=== PATIENT | male | born 1995 | race Caucasian/White ===

== ENCOUNTER 2019-02-28 09:26 | Emergency (ER) | payer BC, SELFPAY ==
[2019-02-28 09:27] VITALS: BP 153/95; PULSE 126; RESP 20; TEMP 36.6; O2SAT 94; BMI 47.5
--- NOTE | 2019-02-28 09:47 | HMH.EDUTC ---
[facility] [place] Clinical Impression: Vomiting and diarrhea Disposition: Home, Self-Care Condition on Discharge: Good Instructions: Diarrhea (Alternative Therapy), Diarrhea (Alternative Therapy), Diarrhea, Nausea and Vomiting-Adult, Ondansetron Additional Instructions: ? Drink extra fluids with and between meals. If you have difficulty drinking, try very small amounts of water or suck on ice chips. ? Avoid fruit juices, as these do not replace minerals and can actually increase diarrhea. ? Children and adults can use sports drinks to replenish electrolytes. Younger children and infants should use products formulated for children, like oral rehydration solutions. ? Eat food in small amounts and let your stomach recover. ? Get lots of rest. You may feel tired or weak. ? No greasy or fried foods for the next 24-48 hours BRAT diet Bananas Rice Apples and [place] ? Make sure to drink plenty of liquids ? Return if needed ? Straight to ER if any life threatening symptoms ? Zofran as prescribed ? You was given an outpatient order for diarrhea panel, please collect specimen and bring back to outpatient lab then call back to the [facility] or follow up with family doctor for results ? Follow up with family doctor in the next 48-72 hours if no improvement or any worsening of symptoms Prescriptions: Ondansetron [Zofran 4mg ODT] 4 mg PO Q8HP PRN #20 tab.rapdis PRN Reason: Nausea Transmission Status: Received by [facility] Referrals: Pierre Christianson MD [Primary Care Provider] - As needed Forms: Work/School Release Time of Disposition: 10:23 Medical Decision Making - Mio Inquiry Pt receiving controlled substance: No Mio was queried for this patient: No Vital Signs: 02/28/19 09:27 Temperature 98 F Temperature Source Oral Pulse Rate [Right] 126 H Respiratory Rate 20 Blood Pressure [Right Arm] 153/95 H Blood Pressure Mean [Right Arm] 114 02 Sat by Pulse Oximetry 94 L - Lab Data Lab Results 02/28/19 09:54: Influenza Type A Ag Negative, Influenza Type B Ag Negative - Reevaluation(s) Time: 10:16 Reevaluation #1: Patient sitting on exam table drinking lion mist after medication if patient able to keep down patient will be dc'd home Time: 10:22 Reevaluation #3: Patient drink lion mist with no vomiting States that nausea is much better [facility] [place] - General Stated complaint: V/D Time Seen by Provider: 02/28/19 09:53 Mode of Arrival: Ambulatory Limitations: No Limitations Description of Symptoms (Recalled from Triage Doc. by RN): Pt states since 10pm last night he has had NVD, fever, body aches, and chills. HEENT Symptoms (Recalled from RN notes): No Resp Symptoms (Recalled from RN notes): No Skin Symptoms (Recalled from RN notes): No MS Symptoms (Recalled from RN notes): No Functional Status (Recalled from RN notes): na - History of Present Illness Provider Complaint: Patient states that he started having vomiting and diarrhea last night around 10pm and has been up and down all night with vomiting and diarrhea State that this morning diarrhea seems to be better but vomiting continued States that he last vomited about 1hr ago - Related Data Previous Rx's Medication Instructions Recorded Mupirocin [Bactroban 2% Ointment 1 applicatio TP BID #1 tube 06/27/17 22gm tube] cephALEXin [Keflex 500mg Cap] 500 mg PO QID #40 cap 06/27/17 Ondansetron [Zofran 4mg ODT] 4 mg PO Q8HP PRN #20 tab.rapdis 02/28/19 Allergies Allergy/AdvReac Type Severity Reaction Status Date / Time Penicillins Allergy Verified 06/27/17 13:38 - Worker's Comp Is this a Worker's Comp case?: No [facility] History - Hepatitis A Screen Drug use history?: No High risk sexual behaviors?: No History of sexually transmitted infection?: No Currently employed?: No Childcare worker?: No Do you have indoor plumbing?: Yes Do you have electricity?: Yes Attestation statement:: This patient has been sc
[2019-02-28 09:54] LABS: UTC Influenza A Antigen Negative (Negative); UTC Influenza B Antigen Negative (Negative)
[2019-02-28 10:30] VITALS: PULSE 100; O2SAT 98
[2019-02-28 10:48] VITALS: BP 148/78; PULSE 100; RESP 18; TEMP 36.7; O2SAT 98
== END 2019-02-28 10:50 | disposition home or self-care (01) ==
PROVIDERS: Emergency Provider Nurse Practitioner; PCP Family Medicine
DX: R19.7 Diarrhea, unspecified; R11.2 Nausea with vomiting, unspecified; Z88.0 Allergy status to penicillin
CPT/HCPCS: 87804; 99202